=== PATIENT | male | born 1970 | race African-American/Black ===

== ENCOUNTER 2018-12-27 23:41 | Emergency (ER) | payer SELFPAY ==
[~2018-12-27] VITALS: Ht 193 cm; Wt 113.4 kg
[~2018-12-27 23:41] MED LIST: ACETAMINOPHEN-1 EAC1 ORAL; KEFLEX500 MG ORAL
--- NOTE | 2018-12-28 00:02 | NUR ---
ED Nurse Note: Pt walked in c/o RT knee pain since 12/25. Pt stated he was at the gym, jumped up and felt a shift. 11/03 pain with pressure. RT knee swollen, warm to touch, walked a limp. AO4. NAD. VSS
[2018-12-28] MEDS ORDERED: IBUPROFEN600 MG ORAL (00:29)
[2018-12-28] MEDS ORDERED: HYDROCODON-ACE1 EA15 ORAL (00:29)
--- NOTE | 2018-12-28 00:30 | Emergency Room Report ---
History of Present Illness General Chief Complaint: Lower Extremity Injury Source: Patient Present Illness HPI 48-year-old male with no significant past medical history. He presents with right knee pain. No trauma. He was playing basketball and afterward complains of right knee pain. Some mild swelling. Worse with walking. Worse with bending. Pain is 7 out of 10. This occur few days ago. He had effusion in the knee before and it was drained. He went to see if this need to be drained again. No fever chills but no nausea no vomiting. Allergies: Coded Allergies: PENICILLINS (Verified Allergy, Unknown, 06/06/15) Patient History Past Medical History: see triage record, old chart reviewed Past Surgical History: other Pertinent Family History: none Social History: Denies: smoking Immunizations: other Reviewed Nursing Documentation: PMH: Agreed; PSxH: Agreed Review of Systems Eye: Denies: eye pain, blurred vision ENT: Denies: ear pain, nose congestion, throat swelling Respiratory: Denies: cough, shortness of breath Cardiovascular: Denies: chest pain, palpitations Gastrointestinal: Denies: abdominal pain, diarrhea, nausea, vomiting Musculoskeletal: Reports: joint pain, joint swelling; Denies: back pain Skin: Denies: rash Neurological: Denies: headache, numbness Endocrine: Denies: increased thirst, increased urine Hematologic/Lymphatic: Denies: easy bruising All Other Systems: negative except mentioned in HPI Physical Exam Vital Signs Date Time Temp Pulse Resp B/P (MAP) Pulse Ox O2 Delivery O2 Flow Rate FiO2 12/27/18 23:48 98.6 82 16 113/75 (88) 95 Room Air Vitals normal Sp02 EP Interpretation: reviewed, normal General Appearance: well appearing, no apparent distress, alert Head: normocephalic, atraumatic Eyes: bilateral eye PERRL, bilateral eye EOMI ENT: hearing grossly normal, normal pharynx Neck: full range of motion, supple, no meningismus Respiratory: chest non-tender, lungs clear, normal breath sounds Cardiovascular #1: regular rate, rhythm, no murmur Gastrointestinal: normal bowel sounds, non tender, no mass, no organomegaly, no bruit, non-distended Musculoskeletal: back normal, other - Right knee: Mild effusion. Mild tenderness to the lateral collateral ligament area. Knee is stable. Pulse normal. No redness. Psychiatric: mood/affect normal Medical Decision Making Diagnostic Impression: Primary Impression: Inflammation of joint of right knee ER Course Patient presents with inflammation of the right knee. No fracture dislocation. No evidence of any septic joint. His effusion is very small. I see no need for arthrocentesis. The risks of infection far outweigh the benefit of aspiration. Last Vital Signs Date Time Temp Pulse Resp B/P (MAP) Pulse Ox O2 Delivery O2 Flow Rate FiO2 12/27/18 23:48 98.6 82 16 113/75 (88) 95 Room Air Status: improved Disposition: HOME, SELF-CARE Condition: Stable Scripts Ibuprofen* (MOTRIN*) 600 Mg Tablet 600 MG ORAL THREE TIMES A DAY, #30 TAB 0 Refills Prov: Omar Smith MD 12/28/18 Hydrocodone/Acetaminophen 5-325* (HYDROCODONE/ACETAMINOPHEN 5-325*) 1 Each Tablet 1 TAB ORAL Q6H PRN for For Pain, #15 TAB 0 Refills Prov: Omar Smith MD 12/28/18 Patient Instructions: Knee Sprain Additional Instructions: Elevate leg. Ice pack to the area. Follow-up with your doctor in 7 days. If not better, may need an MRI. Return if worse. Omar Smith MD Dec 28, 2018 00:30
--- NOTE | 2018-12-28 00:31 | NUR ---
ED Nurse Note: PT MEDICATED AND WRAPPED KNEE; PT TOLERATED WELL.
[2018-12-28 00:34] VITALS: BP 113/75
--- NOTE | 2018-12-28 00:34 | NUR ---
ER DISCHARGE NOTE: Patient is cleared to be discharged per ERMD, pt is aox4, on room air, with stable vital signs. pt was given dc and prescription instructions, pt was able to verbalize understanding, pt id band removed. pt is able to ambulate with steady gait. pt took all belongings.
== END 2018-12-28 00:34 | disposition home or self-care (01) ==
LOC: EMR 12-28 00:30
DX: M25.461 Effusion, right knee (principal); Z88.0 Allergy status to penicillin
CPT/HCPCS: 99282

== ENCOUNTER 2019-01-02 11:07 | Emergency (ER) | payer SELFPAY ==
[~2019-01-02] VITALS: Ht 193 cm; Wt 113.4 kg
[~2019-01-02 11:07] MED LIST changes: +HYDROCODON-ACE1 EA15 ORAL; +IBUPROFEN600 MG ORAL
[2019-01-02 11:15] VITALS: BP 152/82
--- NOTE | 2019-01-02 11:15 | NUR ---
ED Nurse Note: PT IS AA0X4, VSS WITH NO ACUTE DISTRESS. PT WALKED IN TO ER C/O RIGHT KNEE PAIN AND SWELLING X 1 WEEK AGO. PT DENIES INJURY OR TRAUMA.
[2019-01-02] MEDS ORDERED: NKM (11:16)
--- NOTE | 2019-01-02 11:31 | NUR ---
ED Nurse Note: PT CAME TO THE ED 12/28/18 FOR THE SAME ISSUE. PT STATED THAT HE CAME BACK BECAUSE NONE OF THE MEDICATION PRESCRIBED CAN BE FILLED BY [facility].
[2019-01-02 12:56] VITALS: BP 149/80
--- NOTE | 2019-01-02 12:56 | NUR ---
ER DISCHARGE NOTE: Patient is cleared to be discharged per ERMD, pt is aox4, on room air, with stable vital signs. pt was given dc and prescription instructions, pt was able to verbalize understanding, pt id band and iv site removed without complications. pt is able to ambulate with steady gait. pt took all belongings. PT STATES PAIN IS 0/10. Addendum: 01/02/19 at 1426 by CLAUS ED Nurse Note: PT LEFT I WAS GETTING THE [employer] SUPPLIES.
--- NOTE | 2019-01-02 13:04 | Diagnostic Imaging Report ---
Indication: Right knee Pain 3 views of the right knee were obtained. Findings: There is a distention of the suprapatellar aspect of the joint space likely due to a pleural effusion. There is narrowing of the patellofemoral joint with osteophyte formation. There is irregularity at the inferior pole of the patella which may be due to previous surgery or trauma. The patella tendon appears fairly attenuated. There is no patella genna. Please correlate clinically. The medial and lateral joint space height of the knee appear relatively well-maintained. There is mild chondrocalcinosis and osteophyte formation at the joint margins. IMPRESSION: Moderate patellofemoral arthrosis with irregularity of the inferior pole of the patella which may be due to previous trauma and/or surgery. Attenuation of the patellar tendon noted. Joint effusion.
--- NOTE | 2019-01-02 15:23 | Emergency Room Report ---
History of Present Illness General Chief Complaint: Pain Source: Patient Present Illness HPI 48-year-old male presents ED for evaluation. Complaining of right knee pain and swelling. States he was seen here 5 days ago for similar presentation. Inquired whether his knee should be drained and at that time assessment was made that there should be no drainage. Patient was subsequently discharged. Patient states that symptoms have persisted he still has knee swelling. Pain is dull, 5 out of 10, nonradiating. Denies any specific injury that could have caused the swelling. Denies fevers or chills. States he is able to bear weight. No other aggravating relieving factors. Denies any other associated symptoms Allergies: Coded Allergies: PENICILLINS (Verified Allergy, Unknown, 06/06/15) Patient History Past Medical History: none Past Surgical History: none Pertinent Family History: none Social History: Denies: smoking, alcohol use, drug use Immunizations: UTD Reviewed Nursing Documentation: PMH: Agreed; PSxH: Agreed Nursing Documentation-PMH Past Medical History: No History, Except For Review of Systems All Other Systems: negative except mentioned in HPI Physical Exam Vital Signs Date Time Temp Pulse Resp B/P (MAP) Pulse Ox O2 Delivery O2 Flow Rate FiO2 01/02/19 11:09 98.2 71 18 147/79 (101) 100 Room Air Sp02 EP Interpretation: reviewed, normal General Appearance: no apparent distress, alert, GCS 15, non-toxic Head: normocephalic Eyes: bilateral eye normal inspection, bilateral eye PERRL ENT: normal ENT inspection Neck: normal inspection Respiratory: normal inspection Cardiovascular #1: normal inspection Gastrointestinal: normal inspection Rectal: deferred Genitourinary: no CVA tenderness Musculoskeletal: back normal, gait/station normal, normal range of motion, non- tender, swelling - R knee Neurologic: alert, oriented x3, responsive, motor strength/tone normal, sensory intact, speech normal Psychiatric: normal inspection Skin: no rash Lymphatic: normal inspection Procedures Splinting Splinting : Consent: Verbal Pre-Made Type: GEORGE wrap - R knee Pre-Proc Neuro Vasc Exam: normal Post-Proc Neuro Vasc Exam: normal Patient Tolerated: Well Complications: None Medical Decision Making Diagnostic Impression: Primary Impression: Knee pain Qualified Codes: M25.561 - Pain in right knee ER Course Hospital Course 48 yo M presents to ED c/o R knee pain/swelling Differential diagnoses include: Fracture, dislocation, sprain, contusion Clinical course Patient placed on stretcher. After initial history and physical, I ordered Xrays of R knee xray appears to be evidence of an effusion. No acute fracture. There is some DJD noted There is no erythema. No tenderness to the knee. I do not have suspicion for gout or septic joint. Effusion is likely inflammatory given evidence of arthritis.. I discussed these findings with patient. There is no emergent indication for joint aspiration. Patient will need to follow-up with orthopedics. I will provide referrals. Diagnosis - knee pain Stable and discharged to home. apply ice, keep elevated. weight bear as tolerated. Followup with PMD/ortho. Return to ED if symptoms recur or worsen Other X-Ray Diagnostic Results Other X-Ray Diagnostic Results : X-Ray ordered: R knee # of Views/Limited Vs Complete: 3 View Indication: Pain EP Interpretation: Yes Interpretation: no dislocation, no soft tissue swelling, no fractures, other - joint effusion Impression: Other - joint effusion Electronically Signed by: Electronically signed by Zafar Mac MD Last Vital Signs Date Time Temp Pulse Resp B/P (MAP) Pulse Ox O2 Delivery O2 Flow Rate FiO2 01/02/19 12:56 98.5 88 18 149/80 100 Room Air Status: improved Disposition: HOME, SELF-CARE Condition: Stable [facility]errals: [facility] Open 24 hour /7 days a week by Appointment Only [address] [facility] [address] [facility] [id number] Patient Instructions: Knee Sprain, [id number] Zafar Mac MD Jan 02, 2019 15:23
== END 2019-01-02 12:56 | disposition home or self-care (01) ==
LOC: EMR 12:00
DX: M25.561 Pain in right knee (principal)
CPT/HCPCS: 99283